=== PATIENT | male | born 1960 | race African-American/Black ===

== ENCOUNTER 2017-05-25 18:48 | Emergency (ER) | payer OTHER ==
[~2017-05-25] VITALS: Ht 177.8 cm; Wt 73.9 kg
[~2017-05-25 18:48] MED LIST: ZES10 PO
[2017-05-25 19:20] VITALS: Ht 177.8 cm; Wt 73.9 kg
[2017-05-25 21:16] LABS: BASOPHIL % 0.2 % (0-2); PLATELET COUNT 278 x10^3mcL (130-400); RED CELL DISTRIBUTION WIDTH 13.3 % (11.5-14.5)
[2017-05-25 21:30] LABS: ALBUMIN 3.9 g/dL (3.4-5.0); ALKALINE PHOSPHATASE 47 U/L (46-116); ALT/SGPT 16 U/L (16-63); AST/SGOT 18 U/L (15-37); BILIRUBIN TOTAL 0.71 mg/dL (0.20-1.00); CALCIUM 8.4 mg/dL (8.5-10.1); CARBON DIOXIDE 26.1 mmol/L (21-32); CHLORIDE SERUM 101 mmol/L (98-107); CREATININE SERUM 0.9 mg/dL (0.7-1.3); GFR1 > 60 mL/min; GLUCOSE SERUM 134 mg/dL (74-106); LIPASE 148 IU/L (73-393); SODIUM SERUM 139 mmol/L (136-145); TOTAL PROTEIN, SERUM 6.9 g/dL (6.4-8.2)
[2017-05-25 21:33] LABS: POTASSIUM SERUM 2.7 mmol/L (3.5-5.1)
[2017-05-26 01:07] VITALS: BP 181/91
[2017-05-26 02:00] LABS: microscopic required? YES; urine erythrocyte NEGATIVE (NEGATIVE)
== END 2017-05-26 01:07 | disposition home or self-care (01) ==
LOC: ED 18:48
PROVIDERS: Emergency Medicine
DX: E87.6 Hypokalemia (principal); E86.0 Dehydration; R11.2 Nausea with vomiting, unspecified; R19.7 Diarrhea, unspecified; I10 Essential (primary) hypertension
CPT/HCPCS: J0360; J1200; J1885; J2270; J2405; J3475; J7030; Q9967

== ENCOUNTER 2018-04-21 07:00 | Emergency (ER) | payer OTHER ==
[~2018-04-21] VITALS: Ht 177.8 cm; Wt 75.7 kg
[2018-04-21 07:10] VITALS: Ht 177.8 cm; Wt 75.7 kg
[2018-04-21 08:08] LABS: BASOPHIL % 0.2 % (0-2); PLATELET COUNT 294 x10^3mcL (130-400); RED CELL DISTRIBUTION WIDTH 12.2 % (11.5-14.5)
[2018-04-21 08:20] LABS: ALBUMIN 3.8 g/dL (3.4-5.0); ALKALINE PHOSPHATASE 55 U/L (46-116); ALT/SGPT 27 U/L (16-63); AST/SGOT 23 U/L (15-37); BILIRUBIN TOTAL 0.6 mg/dL (0.20-1.00); CALCIUM 8.4 mg/dL (8.5-10.1); CARBON DIOXIDE 29.2 mmol/L (21-32); CHLORIDE SERUM 95 mmol/L (98-107); CREATININE SERUM 0.8 mg/dL (0.7-1.3); GFR1 > 60 mL/min; GLUCOSE SERUM 114 mg/dL (74-106); LIPASE 64 IU/L (73-393); SODIUM SERUM 134 mmol/L (136-145); TOTAL PROTEIN, SERUM 6.8 g/dL (6.4-8.2)
[2018-04-21 08:23] LABS: POTASSIUM SERUM 2.5 mmol/L (3.5-5.1)
[2018-04-21 08:53] LABS: UA SPECIFIC GRAVITY 1.015 (1.005-1.035); microscopic required? YES; urine erythrocyte TRACE (NEGATIVE)
[2018-04-21 13:28] LABS: AMPHETAMINE QUAL UR NONE DETECTED (See below)
[2018-04-21 14:00] VITALS: BP 149/92
== END 2018-04-21 14:00 | disposition home or self-care (01) ==
LOC: ED 07:00
PROVIDERS: Emergency Medicine
DX: R10.13 Epigastric pain (principal); R11.10 Vomiting, unspecified; F12.90 Cannabis use, unspecified, uncomplicated; E87.6 Hypokalemia; I10 Essential (primary) hypertension
CPT/HCPCS: J2405; J3010; J3490; J7030

== ENCOUNTER 2020-01-26 03:38 | Emergency (ER) | payer BC ==
[~2020-01-26] VITALS: Ht 177.8 cm; Wt 74.8 kg
[2020-01-26 03:39] VITALS: Ht 177.8 cm; Wt 74.8 kg
[2020-01-26 05:23] LABS: BASOPHIL % 0.8 % (0.2-1.5); PLATELET COUNT 298 x10^3mcL (152-348); RED CELL DISTRIBUTION WIDTH 13.3 % (12.1-16.2)
[2020-01-26 05:38] LABS: ALBUMIN 4.8 g/dL (3.4-5.0); ALKALINE PHOSPHATASE 72 U/L (46-116); ALT/SGPT 60 U/L (16-63); AST/SGOT 31 U/L (15-37); BILIRUBIN TOTAL 0.8 mg/dL (0.20-1.00); CALCIUM 8.9 mg/dL (8.5-10.1); CHLORIDE SERUM 98 mmol/L (98-107); CREATININE SERUM 1.1 mg/dL (0.7-1.3); GFR1 > 60 mL/min; GLUCOSE SERUM 148 mg/dL (74-106); SODIUM SERUM 140 mmol/L (136-145)
[2020-01-26 05:42] LABS: TOTAL PROTEIN, SERUM 8.3 g/dL (6.4-8.2)
[2020-01-26 05:44] LABS: POTASSIUM SERUM 2.9 mmol/L (3.5-5.1)
[2020-01-26 09:54] LABS: AMPHETAMINE QUAL UR NONE DETECTED (See below)
[2020-01-26 11:37] VITALS: BP 146/85
== END 2020-01-26 11:37 | disposition home or self-care (01) ==
LOC: ED 03:38
PROVIDERS: Emergency Medicine
DX: K29.00 Acute gastritis without bleeding (principal); F12.10 Cannabis abuse, uncomplicated; I10 Essential (primary) hypertension; Z20.828 Contact with and (suspected) exposure to other viral communicable diseases
CPT/HCPCS: 83880; C9113; J1630; J2060; J2270; J2405; J3490; J7050; U0003